=== PATIENT | female | born 1960 | race African-American/Black ===

== ENCOUNTER 2016-03-21 13:19 | Inpatient (IN) | payer OTHER ==
[2016-03-21 14:44] VITALS: BMI 23.3
[2016-03-21] MEDS ORDERED: P-EPHED 60MG/TRIPROLIDI 2.5MG TABLET PO PRN (15:41)
[2016-03-21] MEDS ORDERED: MAGNESIUM HYDROX 2400MG/30ML ORAL SUSPENSION 30 ML CUP PO PRN (15:41)
[2016-03-21] MEDS ORDERED: MAG HYDROX/AL HYDROX/SIMETH 30 ML UNIT-DOSE CUP PO PRN (15:41)
[2016-03-21] MEDS ORDERED: MAGNESIUM CITRATE 300 ML BOTTLE PO PRN (15:41)
[2016-03-21] MEDS ORDERED: hydrOXYzine PAMOATE 25 MG CAPSULE (FP) PO PRN (15:41)
[2016-03-21] MEDS ORDERED: MENTHOL/PHENOL 1 EACH UD MM PRN (15:41)
[2016-03-21] MEDS ORDERED: guaiFENesin/D-METHORPHAN HB 10 ML UNIT-DOSE CUPS PO PRN (15:41)
[2016-03-21] MEDS ORDERED: LOPERAMIDE HCL 2 MG CAPSULE PO PRN (15:41)
--- NOTE | 2016-03-21 15:54 | HP ---
CIWA Score - CIWA Score Nausea/Vomitin Muscle Tremors: 2 Anxiety: 3 Agitation: 3 Paroxysmal Sweats: 3 Orientation: 0-Oriented Tacttile Disturbances: 2-Mild Itch/Numbness/Burn Auditory Disturbances: 0-None Visual Disturbances: 0-None Headache: 0-None Present CIWA-Ar Total Score: 16 Admission ROS BHS - HPI Chief Complaint: I need help to sto alcohol dep. and my program sent me here Allergies/Adverse Reactions: Allergies Allergy/AdvReac Type Severity Reaction Status Date / Time No Known Allergies Allergy Verified 03/21/16 15:32 Exam Limitations: No Limitations - Ebola screening Have you traveled outside of the country in the last 21 days: No Have you had contact with anyone from an Ebola affected area: No Have you been sick,other than usual withdrawal symptoms: No Do you have a fever: No - Review of Systems Constitutional: Malaise, Night Sweats, Changes in sleep, Weakness EENT: reports: Dental Problems (edentulous), Other (hoarseness) Respiratory: reports: Shortness of Breath GI: reports: No Symptoms Reported, Nausea, Abdominal cramping : reports: No Symptoms Reported Musculoskeletal: reports: Muscle Pain Integumentary: reports: No Symptoms Reported Neuro: reports: No Symptoms reported Endocrine: reports: No Symptoms Reported Hematology: reports: No Symptoms Reported Psychiatric: reports: Depressed Other Systems: Reviewed and Negative Patient History - Patient Medical History Hx Anemia: No Hx Asthma: No Hx Chronic Obstructive Pulmonary Disease (COPD): Yes Hx Cancer: Yes (Throat CA 3yrs ago) Hx Cardiac Disorders: No Hx Congestive Heart Failure: No Hx Hypertension: Yes (On meds.) Hx Hypercholesterolemia: Yes (taking meds) Hx Pacemaker: No HX Cerebrovascular Accident: No Hx Seizures: No Hx Dementia: No Hx Diabetes: No Hx Gastrointestinal Disorders: No Hx Liver Disease: No Hx Genitourinary Disorders: No Hx Sexually Transmitted Disorders: No Hx Renal Disease (ESRD): No Hx Thyroid Disease: No Hx Human Immunodeficiency Virus (HIV): Yes (HIV 15yrs ago) Hx Hepatitis C: No Hx Depression: Yes Hx Suicide Attempt: No Hx Bipolar Disorder: No Hx Schizophrenia: No - Patient Surgical History Past Surgical History: Yes Hx Neurologic Surgery: No Hx Cataract Extraction: No Hx Cardiac Surgery: No Hx Lung Surgery: No Hx Breast Surgery: No Hx Breast Biopsy: No Hx Abdominal Surgery: Yes (gastrostomy tube since 2010 removed in 11/25) Hx Appendectomy: No Hx Cholecystectomy: No Hx Genitourinary Surgery: No Hx Section: Yes Hx Orthopedic Surgery: No Other Surgical History: TRACHEOSTOMY 2009 Anesthesia Reaction: No - PPD History Previous Implant?: Yes Documented Results: Negative w/o proof Implanted On Prior [facility] Admission?: Yes Date: 02/13/15 Results: 0mm - Reproductive History Last Menstrual Period: 11/10/08 Patient : No - Smoking Cessation Smoking history: Current every day smoker Have you smoked in the past 12 months: Yes Aproximately how many cigarettes per day: 10 Cigars Per Day: 0 Hx Chewing Tobacco Use: No Initiated information on smoking cessation: Yes 'Breaking Loose' booklet given: 03/21/16 - Substance & Tx. History Hx Alcohol Use: Yes Hx Substance Use: Yes Substance Use Type: Alcohol, Prescribed - Substances Abused Alcohol Route: Oral Frequency: Daily Amount used: 2-3 6PKS BEER Age of first use: 18 Date of Last Use: 03/20/16 Alprazolam (Xanax) Route: Oral Frequency: Daily Amount used: 2MG Age of first use: 32 Date of Last Use: 03/20/16 Cocaine Route: Smoking Frequency: Daily Amount used: $10 Age of first use: 22 Date of Last Use: 03/20/16 Family Disease History - Family Disease History Family Disease History: Other: Father (), Mother () Admission Physical Exam BHS - Vital Signs Vital Signs: Vital Signs - 24 hr 03/21/16 14:38 Temperature 96.8 F L Pulse Rate 71 Respiratory 18 Rate Blood Pressure 117/81 55 y/o f pt aox3 with hoarseness cooperative with exam - Physical General Appearance: Yes: Appropriately Dressed, Thin, Anxious HEENTM: Yes: Muffled/Hoarse Voice Respiratory: Yes: Lungs Clear, Normal Breath Sounds, No Respiratory Distress Neck: Yes: Supple, Other (well healed trach scar) Breast: Yes: Breast Exam Deferred Cardiology: Yes: Regular Rhythm, Regular Rate, S1, S2 Abdominal: Yes: Non Tender, Flat, Soft, Increased Bowel Sounds, Surgical Scar ( well healed left upper quad scar-peg) Genitourinary: Yes: Within Normal Limits Back: Yes: Decreased Range of Motion Musculoskeletal: Yes: Back pain, Muscle Pain Neurological: Yes: clinical rehabilitation aide II-XII NML intact, Fully Oriented, Alert, Normal Response Integumentary: Yes: Moist Lymphatic: Yes: Within Normal Limits - Diagnostic (1) Alcohol dependence Current Visit: No Status: Chronic (2) HIV (human immunodeficiency virus infection) Current Visit: Yes Status: Chronic (3) Hypertension Current Visit: Yes Status: Chronic Qualifiers: Hypertension type: essential hypertension Qualified Code(s): I10 - Essential (primary) hypertension (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 - Detox or Rehab [facility] Level of Care: Medically Managed Detox Regimen/Protocol: Librium [facility] Breath Alcohol Content Breath Alcohol Content: 0 Urine Pregancy Test - Result Urine Test Results: Negative- NO Line Present Urine Drug Screen - Results Drug Screen Negative: No Urine Drug Screen Results: PAGE-Cocaine, BZO-Benzodiazepines, MTD-Methadone, TCA- Tricyclic Antidepress
[2016-03-21] MEDS: chlordiazePOXIDE HCL 25 MG CAPSULE PO SCH ×2 (17:27→22:19)
[2016-03-21] MEDS: ACETAMINOPHEN 325 MG TABLET (FP) PO PRN (17:28)
[2016-03-21] MEDS ORDERED: WARFARIN NA 5 MG TABLET (UD) PO SCH (18:00)
[2016-03-21 20:52] LABS: URINE APPEARANCE CLEAR; URINE BILIRUBIN NEGATIVE (NEGATIVE); URINE BLOOD NEGATIVE (NEGATIVE); URINE COLOR LT. YELLOW; URINE GLUCOSE (UA) NEGATIVE (NEGATIVE); URINE KETONE NEGATIVE (NEGATIVE); URINE NITRITE NEGATIVE (NEGATIVE); URINE PROTEIN NEGATIVE (NEGATIVE); URINE UROBILINOGEN 0.2 E.U/dl E.U./dl (0.2-1.0)
[2016-03-21 21:01] LABS: URINE LEUK ESTERASE TRACE (NEGATIVE)
[2016-03-21] MEDS ORDERED: diphenhydrAMINE HCL 50 MG CAPSULE PO PRN (22:00)
[2016-03-21] MEDS: IBUPROFEN 400 MG TABLET (FP) PO PRN (22:18)
[2016-03-21] MEDS: THIAMINE HCL 100 MG TABLET (FP) PO SCH (22:20)
[2016-03-21 22:29] LABS: URINE RBC 1 /hpf (0-3); URINE WBC 1 /hpf (3-5)
[2016-03-21 22:30] LABS: URINE BACTERIA RARE /hpf (NONE SEEN); URINE MUCUS RARE
[2016-03-22] MEDS: chlordiazePOXIDE HCL 25 MG CAPSULE PO SCH ×4 (06:30→22:28)
[2016-03-22] MEDS: IBUPROFEN 400 MG TABLET (FP) PO PRN (06:37)
[2016-03-22] MEDS ORDERED: METHADONE HCL 10 MG TABLET PO ONE (08:45)
[2016-03-22] MEDS ORDERED: WARFARIN NA 5 MG TABLET (UD) PO SCH (10:00)
[2016-03-22 10:06] LABS: MCH 28.9 pg (25.7-33.7); MCHC 32.1 g/dl (32.0-36.0); MEAN CELL VOLUME 89.8 fl (80-96); MEAN PLT VOLUME 8.2 fl (7.5-11.1); PLATELET COUNT 242 K/MM3 (134-434); RDW 14.9 % (11.6-15.6)
[2016-03-22] MEDS ORDERED: METHADONE 120 MG, METHADONE 20 MG PO ONE (10:20)
[2016-03-22] MEDS: HYDROCHLOROTHIAZIDE 25 MG TABLET (FP) PO SCH (10:24)
[2016-03-22] MEDS: PRENATAL VITAMINS W/ FOLIC ACID TABLET (FP) PO SCH (10:24)
[2016-03-22 10:25] LABS: INR 1.08 (0.82-1.09); PROTHROMBIN TIME (PATIENT) 11.9 SEC (9.98-11.88)
[2016-03-22] MEDS: NICOTINE 21 MG/24 HOURS TOPICAL PATCH TD SCH (10:25)
[2016-03-22] MEDS ORDERED: METHADONE HCL 10 MG TABLET ONE (10:31)
[2016-03-22] MEDS ORDERED: METHADONE HCL 40 MG DISPERSABLE TABLET ONE (10:31)
[2016-03-22 10:42] LABS: ALBUMIN 3.9 g/dl (3.4-5.0); BILIRUBIN,TOTAL 0.5 mg/dL (0.2-1.0); CALCIUM 9.2 mg/dL (8.5-10.1); TOT PROT 8.3 g/dl (6.4-8.2)
--- NOTE | 2016-03-22 11:51 | CONSULT ---
[facility] Psychiatric Consult - Data Date of interview: 03/22/16 Admission source: [facility] Identifying data: Readmission to [facility] for this 55 y/o AA female seeking detox treatment on for alcohol,benzodiazepine and cocaine dependence.Patient is single,a mother of one,domiciled,unemployed and supported on SSI benefits. Substance Abuse History: - Smoking Cessation. Smoking history: Current every day smoker. Have you smoked in the past 12 months: Yes. Aproximately how many cigarettes per day: 10. Cigars Per Day: 0. Hx Chewing Tobacco Use: No. Initiated information on smoking cessation: Yes. 'Breaking Loose' booklet given : 03/21/16. - Substance & Tx. History. Hx Alcohol Use: Yes. Hx Substance Use : Yes. Substance Use Type: Alcohol, Prescribed. - Substances Abused. Alcohol. Route: Oral. Frequency: Daily. Amount used: 2-3 6PKS BEER. Age of first use: 18. Date of Last Use: 03/20/16. Alprazolam (Xanax). Route: Oral. Frequency: Daily. Amount used: 2MG. Age of first use: 32. Date of Last Use: 03/20/16. Cocaine. Route: Smoking. Frequency: Daily. Amount used: $10. Age of first use: 22. Date of Last Use: 03/20/16. Confirmed by patient. Medical History: Significant for a history of COPD,HIV infection (for past 15 years),throat cancer,hypertension,dyslipidemia and weight loss.Noted additional history of gastrostomy (tube in place from 2010 to November 2014) and tracheostomy (2009). Psychiatric History: Patient denies. Physical/Sexual Abuse/Trauma History: Stressors :serious medical illnesses, chronic addictions and loneliness. Additional Comment: Urine Drug Screen Results: PAGE-Cocaine, BZO-Benzodiazepines , MTD-Methadone, TCA-Tricyclic Antidepressant.Noted. Mental Status Exam - Mental Status Exam Alert and Oriented to: Time, Place, Person Cognitive Function: Good Patient Appearance: Well Groomed (thin habitus) Mood: Sad, Withdrawn Affect: Mood Congruent, Constricted Patient Behavior: Fatigued, Appropriate, Cooperative Speech Pattern: Clear Voice Loudness: Normal Thought Process: Goal Oriented Thought Disorder: Not Present Hallucinations: Denies Suicidal Ideation: Denies Homicidal Ideation: Denies Insight/Judgement: Poor Sleep: Poorly, Difficulty falling asleep Appetite: Poor, Weight loss Gait/Station: Normal Psychiatric Findings - Problem List ([place] 1, 2,3) (1) Nicotine dependence Current Visit: Yes Status: Acute Qualifiers: Nicotine product type: cigarettes (2) Alcohol dependence Current Visit: Yes Status: Acute (3) Opioid dependence on agonist therapy Current Visit: Yes Status: Acute (4) Sedative withdrawal Current Visit: Yes Status: Acute (5) Cocaine dependence Current Visit: Yes Status: Acute Qualifiers: Substance use status: uncomplicated Qualified Code(s): F14.20 - Cocaine dependence, uncomplicated (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 Current Visit: Yes Status: Acute (7) Alcohol-induced sleep disorder Current Visit: Yes Status: Suspected (8) Hypertension Current Visit: Yes Status: Chronic Qualifiers: Hypertension type: essential hypertension Qualified Code(s): I10 - Essential (primary) hypertension (9) COPD (chronic obstructive pulmonary disease) Current Visit: Yes Status: Chronic (10) History of throat cancer Current Visit: Yes Status: Chronic (11) Hyperlipidemia Current Visit: Yes Status: Chronic - Initial Treatment Plan Initial Treatment Plan: Psychoeducation :patient is offered option of antidepressant medicatiion (SSRI).She declines.She requests zolpidem to address insomnia.Detoxification in progress.Zolpidem 5 mg po hs prn.Patient made aware of risk of parasomnias.She agrees with this laura.Observation.
[2016-03-22] MEDS ORDERED: INFLUENZA VACCINE 45 MCG/0.5 ML (MDV 16-17) IM ONE (12:00)
--- NOTE | 2016-03-22 14:07 | PN ---
S CIWA - CIWA Score Nausea/Vomitin Muscle Tremors: 2 Anxiety: 3 Agitation: 3 Paroxysmal Sweats: 2 Orientation: 0-Oriented Tacttile Disturbances: 1-Very Mild Itch/Numbness Auditory Disturbances: 0-None Visual Disturbances: 0-None Headache: 0-None Present CIWA-Ar Total Score: 13 S Progress Note (SOAP) Subjective: interrupted sleep, sweats shakes Objective: 03/22/16 14:05 Vital Signs Temperature 96.3 F L 03/22/16 09:46 Pulse Rate 71 03/22/16 09:46 Respiratory Rate 18 03/22/16 09:46 Blood Pressure 122/69 03/22/16 09:46 O2 Sat by Pulse Oximetry (%) Laboratory Tests 03/21/16 03/22/16 03/22/16 19:30 06:00 06:00 WBC 5.0 RBC 4.31 Hgb 12.4 D Hct 38.7 MCV 89.8 MCHC 32.1 RDW 14.9 Plt Count 242 D MPV 8.2 INR Sodium 138 Potassium 3.9 Chloride 99 Carbon Dioxide 31 Anion Gap 8 BUN 8 D Creatinine 1.0 D Creat Clearance w eGFR 58.00 Random Glucose 66 L D Calcium 9.2 Total Bilirubin 0.5 D AST 30 ALT 18 D Alkaline Phosphatase 125 H D Total Protein 8.3 H Albumin 3.9 Urine Color Lt. yellow Urine Appearance Clear Urine pH 6.0 Ur Specific [place] 1.020 Urine Protein Negative Urine Glucose (UA) Negative Urine Ketones Negative Urine Blood Negative Urine Nitrite Negative Urine Bilirubin Negative Urine Urobilinogen 0.2 e.u/dl Ur Leukocyte Esterase Trace H Urine RBC 1 Urine WBC 1 Ur Epithelial Cells Moderate Urine Bacteria Rare Urine Mucus Rare RPR Titer 03/22/16 03/22/16 06:00 07:00 WBC RBC Hgb Hct MCV MCHC RDW Plt Count MPV INR 1.08 D Sodium Potassium Chloride Carbon Dioxide Anion Gap BUN Creatinine Creat Clearance w eGFR Random Glucose Calcium Total Bilirubin AST ALT Alkaline Phosphatase Total Protein Albumin Urine Color Urine Appearance Urine pH Ur Specific [place] Urine Protein Urine Glucose (UA) Urine Ketones Urine Blood Urine Nitrite Urine Bilirubin Urine Urobilinogen Ur Leukocyte Esterase Urine RBC Urine WBC Ur Epithelial Cells Urine Bacteria Urine Mucus RPR Titer Nonreactive pt aox3 in nad ambulating with hoarseness 03/22/16 14:06 Assessment: 03/22/16 14:05 withdrawl sx's hoarseness inr not therapeutic Plan: cont.detox increase fluids 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
[2016-03-22] MEDS: chlordiazePOXIDE HCL 25 MG CAPSULE PO PRN (15:50)
[2016-03-22] MEDS ORDERED: WARFARIN NA 7.5 MG TABLET (FP) PO SCH (18:00)
[2016-03-22] MEDS: ACETAMINOPHEN 325 MG TABLET (FP) PO PRN (18:11)
[2016-03-22] MEDS: ATORVASTATIN CA 10 MG TABLET (FP) PO SCH ×2 (18:26→22:28)
[2016-03-22] MEDS: ZOLPIDEM TARTRATE 5 MG TABLET PO PRN (22:28)
[2016-03-22] MEDS: THIAMINE HCL 100 MG TABLET (FP) PO SCH (22:28)
[2016-03-23] MEDS: chlordiazePOXIDE HCL 25 MG CAPSULE PO PRN ×2 (00:48→07:31)
[2016-03-23] MEDS ORDERED: METHADONE HCL 40 MG DISPERSABLE TABLET ONE (05:12)
[2016-03-23] MEDS ORDERED: METHADONE HCL 10 MG TABLET ONE (05:12)
[2016-03-23] MEDS: chlordiazePOXIDE HCL 25 MG CAPSULE PO SCH ×2 (05:46→10:25)
[2016-03-23] MEDS: METHADONE 120 MG, METHADONE 20 MG PO SCH (05:47)
[2016-03-23] MEDS ORDERED: METHADONE HCL 40 MG DISPERSABLE TABLET PO SCH (06:00)
[2016-03-23] MEDS: ACETAMINOPHEN 325 MG TABLET (FP) PO PRN ×2 (07:28→20:59)
[2016-03-23 10:14] LABS: INR 1.12 (0.82-1.09); PROTHROMBIN TIME (PATIENT) 12.3 SEC (9.98-11.88)
[2016-03-23] MEDS: HYDROCHLOROTHIAZIDE 25 MG TABLET (FP) PO SCH (10:25)
[2016-03-23] MEDS: PRENATAL VITAMINS W/ FOLIC ACID TABLET (FP) PO SCH (10:25)
--- NOTE | 2016-03-23 10:26 | EKG ---
Test Reason : Blood Pressure : / mmHG Vent. Rate : 068 BPM Atrial Rate : 068 BPM P-R Int : 120 ms QRS Dur : 082 ms QT Int : 420 ms P-R-T Axes : 065 037 066 degrees QTc Int : 446 ms NORMAL SINUS RHYTHM NONSPECIFIC T WAVE ABNORMALITY ABNORMAL ECG WHEN COMPARED WITH ECG OF 21-NOV-2013 14:55, NONSPECIFIC T WAVE ABNORMALITY NOW EVIDENT IN LATERAL LEADS Confirmed by JAYDE MIRANDA, JASMINE ([id number]) on 03/23/2016 10:25:33 AM Referred By: Confirmed By:JASMINE DONOHUE MD
[2016-03-23] MEDS: NICOTINE 21 MG/24 HOURS TOPICAL PATCH TD SCH (10:31)
--- NOTE | 2016-03-23 11:42 | PN ---
S CIWA - CIWA Score Nausea/Vomitin Muscle Tremors: 2 Anxiety: 2 Agitation: 2 Paroxysmal Sweats: 2 Orientation: 0-Oriented Tacttile Disturbances: 1-Very Mild Itch/Numbness Auditory Disturbances: 0-None Visual Disturbances: 0-None Headache: 0-None Present CIWA-Ar Total Score: 11 [facility] Progress Note (SOAP) Subjective: interrupted sleep but feeling better , occas cough ing when eatting Objective: 03/23/16 11:40 Vital Signs Temperature 97 F L 03/23/16 10:23 Pulse Rate 82 03/23/16 10:23 Respiratory Rate 20 03/23/16 10:23 Blood Pressure 108/72 03/23/16 10:23 O2 Sat by Pulse Oximetry (%) Laboratory Tests 03/21/16 03/22/16 03/22/16 19:30 06:00 06:00 WBC 5.0 RBC 4.31 Hgb 12.4 D Hct 38.7 MCV 89.8 MCHC 32.1 RDW 14.9 Plt Count 242 D MPV 8.2 INR Sodium 138 Potassium 3.9 Chloride 99 Carbon Dioxide 31 Anion Gap 8 BUN 8 D Creatinine 1.0 D Creat Clearance w eGFR 58.00 Random Glucose 66 L D Calcium 9.2 Total Bilirubin 0.5 D AST 30 ALT 18 D Alkaline Phosphatase 125 H D Total Protein 8.3 H Albumin 3.9 Urine Color Lt. yellow Urine Appearance Clear Urine pH 6.0 Ur Specific [place] 1.020 Urine Protein Negative Urine Glucose (UA) Negative Urine Ketones Negative Urine Blood Negative Urine Nitrite Negative Urine Bilirubin Negative Urine Urobilinogen 0.2 e.u/dl Ur Leukocyte Esterase Trace H Urine RBC 1 Urine WBC 1 Ur Epithelial Cells Moderate Urine Bacteria Rare Urine Mucus Rare RPR Titer 03/22/16 03/22/16 03/23/16 06:00 07:00 07:30 WBC RBC Hgb Hct MCV MCHC RDW Plt Count MPV INR 1.08 D 1.12 Sodium Potassium Chloride Carbon Dioxide Anion Gap BUN Creatinine Creat Clearance w eGFR Random Glucose Calcium Total Bilirubin AST ALT Alkaline Phosphatase Total Protein Albumin Urine Color Urine Appearance Urine pH Ur Specific [place] Urine Protein Urine Glucose (UA) Urine Ketones Urine Blood Urine Nitrite Urine Bilirubin Urine Urobilinogen Ur Leukocyte Esterase Urine RBC Urine WBC Ur Epithelial Cells Urine Bacteria Urine Mucus RPR Titer Nonreactive pt aox3 in nad ambulating Assessment: 03/23/16 11:40 withdrawl sx's subtherapeutic inr - will increase warfarin and repeat inr Plan: cont. 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
[2016-03-23] MEDS: chlordiazePOXIDE 5 MG CAPSULE PO SCH ×2 (17:40→22:12)
[2016-03-23] MEDS: WARFARIN NA 10 MG TABLET (FP) PO SCH (18:32)
[2016-03-23] MEDS: ATORVASTATIN CA 10 MG TABLET (FP) PO SCH (22:12)
[2016-03-23] MEDS: THIAMINE HCL 100 MG TABLET (FP) PO SCH (22:12)
[2016-03-24] MEDS ORDERED: METHADONE HCL 40 MG DISPERSABLE TABLET ONE (05:21)
[2016-03-24] MEDS ORDERED: METHADONE HCL 10 MG TABLET ONE (05:21)
[2016-03-24] MEDS: chlordiazePOXIDE 5 MG CAPSULE PO SCH ×2 (05:36→10:39)
[2016-03-24] MEDS: METHADONE 120 MG, METHADONE 20 MG PO SCH (06:08)
[2016-03-24 10:22] LABS: INR 1.97 (0.82-1.09)
[2016-03-24] MEDS: HYDROCHLOROTHIAZIDE 25 MG TABLET (FP) PO SCH (10:38)
[2016-03-24] MEDS: PRENATAL VITAMINS W/ FOLIC ACID TABLET (FP) PO SCH (10:38)
[2016-03-24] MEDS: NICOTINE 21 MG/24 HOURS TOPICAL PATCH TD SCH (10:45)
[2016-03-24] MEDS: ACETAMINOPHEN 325 MG TABLET (FP) PO PRN ×2 (10:46→22:27)
--- NOTE | 2016-03-24 10:54 | PN ---
[facility] Progress Note (SOAP) Subjective: sweats diarrhea Objective: 03/24/16 10:53 Vital Signs Temperature 97.5 F L 03/24/16 10:39 Pulse Rate 80 03/24/16 10:39 Respiratory Rate 18 03/24/16 10:39 Blood Pressure 116/75 03/24/16 10:39 O2 Sat by Pulse Oximetry (%) awake/alert ambulating no acute distress Assessment: 03/24/16 10:54 withdrawal sx Plan: continue detox increase fluids immodium prn d/c in am
[2016-03-24] MEDS: chlordiazePOXIDE HCL 25 MG CAPSULE PO PRN (14:58)
[2016-03-24] MEDS: chlordiazePOXIDE HCL 10 MG CAPSULE PO SCH ×2 (17:17→22:24)
[2016-03-24] MEDS: WARFARIN NA 10 MG TABLET (FP) PO SCH (17:17)
[2016-03-24] MEDS: ATORVASTATIN CA 10 MG TABLET (FP) PO SCH (22:25)
[2016-03-24] MEDS: THIAMINE HCL 100 MG TABLET (FP) PO SCH (22:25)
[2016-03-24] MEDS: ZOLPIDEM TARTRATE 5 MG TABLET PO PRN (22:28)
[2016-03-25] MEDS ORDERED: METHADONE HCL 10 MG TABLET ONE (05:03)
[2016-03-25] MEDS ORDERED: METHADONE HCL 40 MG DISPERSABLE TABLET ONE (05:04)
[2016-03-25] MEDS: chlordiazePOXIDE HCL 10 MG CAPSULE PO SCH (05:55)
[2016-03-25] MEDS: ACETAMINOPHEN 325 MG TABLET (FP) PO PRN (06:08)
[2016-03-25] MEDS: METHADONE 120 MG, METHADONE 20 MG PO SCH (06:41)
--- NOTE | 2016-03-25 10:19 | DS ---
[facility] Detox Discharge Summary Admission Date: 03/21/16 Discharge Date: 03/25/16 - History Present History: Alcohol Dependence, Cocaine Dependence, Opioid Dependence Pertinent Past History: see below - Physical Exam Results Vital Signs: Vital Signs Temperature 97.7 F 03/25/16 06:40 Pulse Rate 77 03/25/16 06:40 Respiratory Rate 18 03/25/16 06:40 Blood Pressure 100/65 03/25/16 06:40 O2 Sat by Pulse Oximetry (%) Pertinent Admission Physical Exam Findings: admitted in acute withdrawal medically stable on dc dc today detox completed Laboratory Results - last 24 hr 03/24/16 07:00 INR 1.97 H D Laboratory Tests 03/21/16 03/22/16 03/22/16 19:30 06:00 06:00 WBC 5.0 RBC 4.31 Hgb 12.4 D Hct 38.7 MCV 89.8 MCHC 32.1 RDW 14.9 Plt Count 242 D MPV 8.2 INR Sodium 138 Potassium 3.9 Chloride 99 Carbon Dioxide 31 Anion Gap 8 BUN 8 D Creatinine 1.0 D Creat Clearance w eGFR 58.00 Random Glucose 66 L D Calcium 9.2 Total Bilirubin 0.5 D AST 30 ALT 18 D Alkaline Phosphatase 125 H D Total Protein 8.3 H Albumin 3.9 Urine Color Lt. yellow Urine Appearance Clear Urine pH 6.0 Ur Specific [place] 1.020 Urine Protein Negative Urine Glucose (UA) Negative Urine Ketones Negative Urine Blood Negative Urine Nitrite Negative Urine Bilirubin Negative Urine Urobilinogen 0.2 e.u/dl Ur Leukocyte Esterase Trace H Urine RBC 1 Urine WBC 1 Ur Epithelial Cells Moderate Urine Bacteria Rare Urine Mucus Rare RPR Titer 03/22/16 03/22/16 03/23/16 06:00 07:00 07:30 WBC RBC Hgb Hct MCV MCHC RDW Plt Count MPV INR 1.08 D 1.12 Sodium Potassium Chloride Carbon Dioxide Anion Gap BUN Creatinine Creat Clearance w eGFR Random Glucose Calcium Total Bilirubin AST ALT Alkaline Phosphatase Total Protein Albumin Urine Color Urine Appearance Urine pH Ur Specific [place] Urine Protein Urine Glucose (UA) Urine Ketones Urine Blood Urine Nitrite Urine Bilirubin Urine Urobilinogen Ur Leukocyte Esterase Urine RBC Urine WBC Ur Epithelial Cells Urine Bacteria Urine Mucus RPR Titer Nonreactive 03/24/16 07:00 WBC RBC Hgb Hct MCV MCHC RDW Plt Count MPV INR 1.97 H D Sodium Potassium Chloride Carbon Dioxide Anion Gap BUN Creatinine Creat Clearance w eGFR Random Glucose Calcium Total Bilirubin AST ALT Alkaline Phosphatase Total Protein Albumin Urine Color Urine Appearance Urine pH Ur Specific [place] Urine Protein Urine Glucose (UA) Urine Ketones Urine Blood Urine Nitrite Urine Bilirubin Urine Urobilinogen Ur Leukocyte Esterase Urine RBC Urine WBC Ur Epithelial Cells Urine Bacteria Urine Mucus RPR Titer - Treatment Hospital Course: Detox Protocol Followed, Detoxed Safely, Responded well, Discharged Condition Good, Rehab Referral Accepted - Medication Discharge Medications: Ambulatory Orders Emtricitab/Rilpivirine/Tenofov [Complera Tablet -] 1 each PO DAILY #30 tablet Hydrochlorothiazide [Hctz -] 25 mg PO DAILY #30 tablet 02/16/15 Pravastatin Sodium [Pravachol -] 20 mg PO HS #30 tablet 02/16/15 Warfarin Na [Coumadin -] 5 mg PO DAILY #30 tablet 02/16/15 - Diagnosis (1) Alcohol dependence Current Visit: Yes Status: Acute (2) Cocaine dependence Current Visit: Yes Status: Acute Qualifiers: Substance use status: uncomplicated Qualified Code(s): F14.20 - Cocaine dependence, uncomplicated (3) Nicotine dependence Current Visit: Yes Status: Acute Qualifiers: Nicotine product type: cigarettes (4) Opioid dependence on agonist therapy Current Visit: Yes Status: Acute (5) Sedative withdrawal Current Visit: Yes Status: Acute (6) HIV (human immunodeficiency virus infection) Current Visit: Yes Status: Chronic (7) History of pulmonary embolism Current Visit: No Status: Chronic - AMA Did Patient Leave Against Medical Advice: No
[2016-03-25 10:20] VITALS: BP 110/75; PULSE 75; TEMP 98.4
== END 2016-03-25 10:20 | disposition home or self-care (01) | DRG 773 ==
LOC: YASAS 13:19 → Y6N 16:12
PROVIDERS: ADMIT Internal Medicine Addiction Medicine; ATTEND Internal Medicine Addiction Medicine
PROC: HZ2ZZZZ Detoxification Services for Substance Abuse Treatment (ICD-10-PCS; principal; 2016-03-21)
DX: F13.230 Sedative, hypnotic or anxiolytic dependence with withdrawal, uncomplicated (principal); F11.20 Opioid dependence, uncomplicated; F10.230 Alcohol dependence with withdrawal, uncomplicated; F10.282 Alcohol dependence with alcohol-induced sleep disorder; F14.20 Cocaine dependence, uncomplicated; F17.210 Nicotine dependence, cigarettes, uncomplicated; F32.9 Major depressive disorder, single episode, unspecified; Z21 Asymptomatic human immunodeficiency virus [HIV] infection status; Z86.711 Personal history of pulmonary embolism; Z79.01 Long term (current) use of anticoagulants; J44.9 Chronic obstructive pulmonary disease, unspecified; Z85.818 Personal history of malignant neoplasm of other sites of lip, oral cavity, and pharynx; I10 Essential (primary) hypertension; E78.5 Hyperlipidemia, unspecified; Z87.898 Personal history of other specified conditions; R49.0 Dysphonia
CPT/HCPCS: 36415; 80053; 81003; 81015; 85027; 85610; 86593; 93005; 93010